=== PATIENT | male | born 1965 | race Caucasian/White ===

== ENCOUNTER 2019-02-11 06:05 | Emergency (ER) | payer BC, MEDICAID, OTHER, SELFPAY ==
[~2019-02-11] VITALS: Ht 172.7 cm; Wt 65.5 kg
[2019-02-11 08:29] VITALS: BP 138/89
== END 2019-02-11 09:33 | disposition home or self-care (01) ==
LOC: ED 07:56
DX: L03.115 Cellulitis of right lower limb (principal); Z86.19 Personal history of other infectious and parasitic diseases; Z86.14 Personal history of Methicillin resistant Staphylococcus aureus infection; Z21 Asymptomatic human immunodeficiency virus [HIV] infection status
CPT/HCPCS: 36415; 73590; 80048; 85025; 96372; 99284; J1885